=== PATIENT | male | born 1960 | race African-American/Black ===

== ENCOUNTER 2020-05-06 13:11 | Emergency (ER) | payer MEDICARE ==
[2020-05-06 13:20] VITALS: BP 173/102; PULSE 89; RESP 18; TEMP 99.1
--- NOTE | 2020-05-06 13:46 | ED ---
General Adult HPI - General Chief complaint: Altered Mental Status Stated complaint: confusion/depressed Time Seen by Provider: 05/06/20 13:23 Source: patient, RN notes reviewed, old records reviewed Mode of arrival: wheelchair Limitations: altered mental status - History of Present Illness Initial comments: 60-year-old male presenting for evaluation of anxiety, panic attacks over the past one week. He reports that he's been confused for what he means by this is that he's had a difficult time making decisions. He states he has been watching the news and given the pandemic and riding he has had severe anxiety. He has no previous history of anxiety or depression. He denies suicidal ideation. He states he's having racing thoughts. Currently on gabapentin, Vicodin, and Motrin for chronic pain. No previous psychiatric issues. Patient denying focal numbness or weakness. Denies headache. Denies change in appetite. Denied vomiting or diarrhea. No fever. - Related Data Previous Rx's Medication Instructions Recorded ALPRAZolam [Xanax] 0.5 mg PO HS PRN #3 tab 05/06/20 Allergies Allergy/AdvReac Type Severity Reaction Status Date / Time No Known Allergies Allergy Verified 05/06/20 13:20 Review of Systems ROS Statement: Those systems with pertinent positive or pertinent negative responses have been documented in the HPI. ROS Other: All systems not noted in ROS Statement are negative. Past Medical History Past Medical History: Hyperlipidemia, Hypertension History of Any Multi-Drug Resistant Organisms: None Reported Past Surgical History: Orthopedic Surgery Past Psychological History: No Psychological Hx Reported Smoking Status: Never smoker Past Alcohol Use History: None Reported Past Drug Use History: None Reported General Exam Limitations: altered mental status General appearance: alert, in no apparent distress, anxious Head exam: Present: atraumatic, normocephalic Eye exam: Present: normal appearance, PERRL ENT exam: Present: normal exam, mucous membranes moist Neck exam: Present: normal inspection. Absent: tenderness, meningismus Respiratory exam: Present: normal lung sounds bilaterally. Absent: respiratory distress, wheezes, rales Cardiovascular Exam: Present: regular rate, normal rhythm GI/Abdominal exam: Present: soft. Absent: distended, tenderness, guarding Extremities exam: Present: normal inspection, normal capillary refill. Absent: pedal edema, calf tenderness Neurological exam: Present: alert, oriented X3, CN II-XII intact. Absent: motor sensory deficit Psychiatric exam: Present: anxious. Absent: suicidal ideation Skin exam: Present: warm, dry, intact. Absent: cyanosis, diaphoretic Course Vital Signs 05/06/20 13:16 Temperature 99.1 F Pulse Rate 89 Respiratory 18 Rate Blood Pressure 173/102 O2 Sat by Pulse 97 Oximetry - Reevaluation(s) Reevaluation #1: 05/06/20 15:00 Patient medically cleared, awaiting EPS evaluation Medical Decision Making - Medical Decision Making Patient with anxiety, panic attacks. Patient medically cleared and evaluated by EPS, given referrals, felt not to require inpatient psychiatric evaluation treatment. I agree with this. Patient is able to sign a safety plan, he has a brother who he can rely on. He will attempt to control his anxiety at home. He is given a three-day supply of Xanax and will follow-up with both [facility] and with his primary care physician. - Lab Data Result diagrams: 05/06/20 13:58 05/06/20 13:58 Lab Results 05/06/20 05/06/20 05/06/20 Range/Units 13:58 13:58 14:00 WBC 7.4 (3.8-10.6) k/uL RBC 4.89 (4.30-5.90) m/uL Hgb 15.1 (13.0-17.5) gm/dL Hct 43.2 (39.0-53.0) % MCV 88.4 (80.0-100.0) fL MCH 30.9 (25.0-35.0) pg MCHC 35.0 (31.0-37.0) g/dL RDW 12.5 (11.5-15.5) % Plt Count 189 (150-450) k/uL Neutrophils % 62 % Lymphocytes % 24 % Monocytes % 10 % Eosinophils % 1 % Basophils % 1 % Neutrophils # 4.6 (1.3-7.7) k/uL Lymphocytes # 1.7 (1.0-4.8) k/uL Monocytes # 0.7 (0-1.0) k/uL Eosinophils # 0.1 (0-0.7) k/uL Basophils # 0.0 (0-0.2) k/uL Sodium 135 L (137-145) mmol/L Potassium 3.4 L (3.5-5.1) mmol/L Chloride 96 L (98-107) mmol/L Carbon Dioxide 27 (22-30) mmol/L Anion Gap 12 mmol/L BUN 8 L (9-20) mg/dL Creatinine 0.71 (0.66-1.25) mg/dL Est GFR (CKD-EPI)AfAm >90 (>60 ml/min/1.73 sqM) Est GFR (CKD-EPI)NonAf >90 (>60 ml/min/1.73 sqM) Glucose 126 H (74-99) mg/dL Calcium 9.2 (8.4-10.2) mg/dL Total Bilirubin 1.0 (0.2-1.3) mg/dL AST 162 H (17-59) U/L ALT 54 H (4-49) U/L Alkaline Phosphatase 85 (38-126) U/L Total Protein 7.6 (6.3-8.2) g/dL Albumin 4.1 (3.5-5.0) g/dL Urine Color Yellow Urine Appearance Clear (Clear) Urine pH 7.0 (5.0-8.0) Ur Specific [place] 1.007 (1.001-1.035) Urine Protein Negative (Negative) Urine Glucose (UA) Negative (Negative) Urine Ketones Negative (Negative) Urine Blood Small H (Negative) Urine Nitrite Negative (Negative) Urine Bilirubin Negative (Negative) Urine Urobilinogen <2.0 (<2.0) mg/dL Ur Leukocyte Esterase Negative (Negative) Urine RBC 4 (0-5) /hpf Urine WBC 1 (0-5) /hpf Urine Opiates Screen Detected H (NotDetected) Ur Oxycodone Screen Not Detected (NotDetected) Urine Methadone Screen Not Detected (NotDetected) Ur Propoxyphene Screen Not Detected (NotDetected) Ur Barbiturates Screen Not Detected (NotDetected) U Tricyclic Antidepress Not Detected (NotDetected) Ur Phencyclidine Scrn Not Detected (NotDetected) Ur Amphetamines Screen Not Detected (NotDetected) U Methamphetamines Scrn Not Detected (NotDetected) U Benzodiazepines Scrn Not Detected (NotDetected) Urine Cocaine Screen Not Detected (NotDetected) U Marijuana (THC) Screen Not Detected (NotDetected) Disposition Clinical Impression: Anxiety Disposition: HOME SELF-CARE Condition: Fair Instructions (If sedation given, give patient instructions): Anxiety (ED) Prescriptions: ALPRAZolam [Xanax] 0.5 mg PO HS PRN #3 tab PRN Reason: Anxiety Is patient prescribed a controlled substance at d/c from ED?: No Referrals: Eladio Paula MD [Primary Care Provider] - 1-2 days Time of Disposition: 15:58
[2020-05-06 14:33] LABS: Basophils % (A) 1 %; Eosinophils # (A) 0.1 k/uL (0-0.7); Eosinophils % (A) 1 %; HCT 43.2 % (39.0-53.0); HGB 15.1 gm/dL (13.0-17.5); Lymphocytes # (A) 1.7 k/uL (1.0-4.8); Lymphocytes % (A) 24 %; MCH 30.9 pg (25.0-35.0); MCV 88.4 fL (80.0-100.0); Mean Platelet Volume 6.6; Monocytes # (A) 0.7 k/uL (0-1.0); Monocytes % (A) 10 %; Neutrophils # (A) 4.6 k/uL (1.3-7.7); Neutrophils % (A) 62 %; Platelet Count 189 k/uL (150-450); RBC 4.89 m/uL (4.30-5.90); RDW 12.5 % (11.5-15.5); WBC 7.4 k/uL (3.8-10.6)
[2020-05-06 14:35] LABS: Appearance,Urine Clear (Clear); Bilirubin,Urine Negative (Negative); Blood,Urine Small (Negative); Color,Urine Yellow; Glucose,Urine (UA) Negative (Negative); Ketones,Urine Negative (Negative); Leukocyte Esterase,Urine Negative (Negative); Nitrite,Urine Negative (Negative); Protein,Urine Negative (Negative); RBC,Urine 4 /hpf (0-5); Specific Gravity,Urine 1.007 (1.001-1.035); Urobilinogen,Urine <2.0 mg/dL (<2.0); WBC,Urine 1 /hpf (0-5)
[2020-05-06 14:38] LABS: ALT 54 U/L (4-49); AST 162 U/L (17-59); African American GFR (CKD) >90 (>60 ml/min/1.73 sqM); Albumin 4.1 g/dL (3.5-5.0); Alkaline Phosphatase 85 U/L (38-126); Anion Gap 12 mmol/L; Blood Urea Nitrogen 8 mg/dL (9-20); Calcium 9.2 mg/dL (8.4-10.2); Carbon Dioxide 27 mmol/L (22-30); Chloride 96 mmol/L (98-107); Glucose 126 mg/dL (74-99); Non-African American GFR(CKD) >90 (>60 ml/min/1.73 sqM); Potassium 3.4 mmol/L (3.5-5.1); Sodium 135 mmol/L (137-145); Total Protein 7.6 g/dL (6.3-8.2)
[2020-05-06 14:50] LABS: Amphetamine Screen,Urine Not Detected (NotDetected); Barbiturate Screen,Urine Not Detected (NotDetected); Benzodiazepines Screen,Urine Not Detected (NotDetected); Cocaine Screen,Urine Not Detected (NotDetected); Methadone Screen, Urine Not Detected (NotDetected); Opiate Screen,Urine Detected (NotDetected); Oxycodone Screen, Urine Not Detected (NotDetected); Phencyclidine Screen,Urine Not Detected (NotDetected); Tricyclic Antidepressant,Urine Not Detected (NotDetected); Urn Cannabinoid Scrn Not Detected (NotDetected)
== END 2020-05-06 16:27 | disposition home or self-care (01) ==
LOC: EC 13:11
DX: F41.0 Panic disorder [episodic paroxysmal anxiety] (principal); R41.82 Altered mental status, unspecified
CPT/HCPCS: 36415; 80053; 80306; 81001; 82075; 85025; 99285

== ENCOUNTER 2020-05-07 06:38 | Emergency (ER) | payer MEDICARE ==
--- NOTE | 2020-05-07 07:10 | ED ---
General Adult HPI <Roger Yu - Last Filed: 05/07/20 11:54> - General Source: patient, family, RN notes reviewed Mode of arrival: ambulatory Limitations: no limitations <Chaim Perry - Last Filed: 05/07/20 15:31> <Dorian Juares - Last Filed: 05/09/20 01:37> <Jessi Olivo - Last Filed: 05/10/20 00:11> <Nolan Schumacher - Last Filed: 05/10/20 14:17> - General Chief complaint: Neuro Symptoms/Deficit Stated complaint: altered mental status Time Seen by Provider: 05/07/20 06:54 - History of Present Illness Initial comments: 60-year-old male presents emergency department for confusion. Patient's had confusion, altered mental status and bizarre behavior for last few days. Patient is here with brother who states it seems to worsening. Patient was evaluated by psychiatric service yesterday and discharged with anxiety. Patient denies being suicidal. He states he never harm anybody. Patient states though he is going to and he states that he needs to via suit because he will be dy ing soon. He states are demons everywhere and that he needs to get rid of the demons. Patient's was found outside naked, does have an abrasion on his forehead. Patient denies any drug use he does take gabapentin, ibuprofen, [place]. Patient was given Xanax yesterday for his anxiety. Patient has no complaints of abdominal pain, headache or neck pain he has chronic low back pain. (Chaim Perry) - Related Data Home Medications Medication Instructions Recorded Confirmed Gabapentin 800 mg PO TID 05/07/20 05/07/20 HYDROcodone/APAP 10-325MG [[place] 1 tab PO Q6H 05/07/20 05/07/20 10-325] Ibuprofen [Motrin] 800 mg PO Q8H 05/07/20 05/07/20 Losartan/Hydrochlorothiazide 1 tab PO DAILY 05/07/20 05/07/20 [Losartan-Hctz 100-25 mg Tab] Mupirocin 2% Oint [Bactroban 2% 1 applic TOPICAL TID 05/07/20 05/07/20 Oint] Previous Rx's Medication Instructions Recorded ALPRAZolam [Xanax] 0.5 mg PO HS PRN #3 tab 05/06/20 Allergies Allergy/AdvReac Type Severity Reaction Status Date / Time No Known Allergies Allergy Verified 05/07/20 07:32 Review of Systems ROS Other: All systems not noted in ROS Statement are negative. <Roger Yu Abena - Last Filed: 05/07/20 11:54> ROS Other: All systems not noted in ROS Statement are negative. <Chaim Perry - Last Filed: 05/07/20 15:31> ROS Other: All systems not noted in ROS Statement are negative. <Dorian Juares - Last Filed: 05/09/20 01:37> ROS Other: All systems not noted in ROS Statement are negative. <Jessi Olivo - Last Filed: 05/10/20 00:11> ROS Other: All systems not noted in ROS Statement are negative. <Nolan Schumacher - Last Filed: 05/10/20 14:17> ROS Statement: Those systems with pertinent positive or pertinent negative responses have been documented in the HPI. Past Medical History Past Medical History: Hyperlipidemia, Hypertension History of Any Multi-Drug Resistant Organisms: None Reported Past Surgical History: Orthopedic Surgery Past Psychological History: No Psychological Hx Reported Smoking Status: Never smoker Past Alcohol Use History: None Reported Past Drug Use History: None Reported <Chaim Perry - Last Filed: 05/07/20 15:31> General Exam Limitations: no limitations General appearance: alert, in no apparent distress Head exam: Present: atraumatic, normocephalic, normal inspection Eye exam: Present: normal appearance, PERRL, EOMI. Absent: scleral icterus, conjunctival injection, periorbital swelling ENT exam: Present: normal exam, normal oropharynx, mucous membranes moist Neck exam: Present: normal inspection, full ROM. Absent: tenderness, meningism us, lymphadenopathy Respiratory exam: Present: normal lung sounds bilaterally. Absent: respiratory distress, wheezes, rales, rhonchi, stridor Cardiovascular Exam: Present: regular rate, normal rhythm, normal heart sounds. Absent: systolic murmur, diastolic murmur, rubs, gallop, clicks GI/Abdominal exam: Present: soft, normal bowel sounds. Absent: distended, tenderness, guarding, rebound, rigid Neurological exam: Present: alert, oriented X3, CN II-XII intact, reflexes normal. Absent: motor sensory deficit Psychiatric exam: Present: anxious Skin exam: Present: warm, dry, intact, normal color. Absent: rash <Chaim Perry - Last Filed: 05/07/20 15:31> Course <Jessi Olivo - Last Filed: 05/10/20 00:11> <Nolan Schumacher - Last Filed: 05/10/20 14:17> Vital Signs 05/07/20 05/07/20 05/07/20 06:41 10:52 13:43 Temperature 99 F 97.9 F Pulse Rate 100 89 81 Respiratory 18 16 16 Rate Blood Pressure 132/82 141/84 145/85 O2 Sat by Pulse 96 96 96 Oximetry 05/07/20 05/07/20 05/08/20 17:16 22:13 03:30 Temperature Pulse Rate 104 H 98 78 Respiratory 18 18 18 Rate Blood Pressure 174/98 160/89 176/80 O2 Sat by Pulse 98 99 98 Oximetry 05/08/20 05/09/20 05/09/20 15:00 05:56 09:27 Temperature 98.0 F Pulse Rate 80 100 88 Respiratory 18 16 18 Rate Blood Pressure 156/87 160/80 185/95 O2 Sat by Pulse 99 98 98 Oximetry 05/09/20 05/09/20 05/09/20 16:44 19:40 22:59 Temperature 98.8 F 98.9 F Pulse Rate 103 H 97 85 Respiratory 18 16 16 Rate Blood Pressure 146/81 191/87 164/77 O2 Sat by Pulse 98 100 97 Oximetry 05/10/20 05/10/20 05/10/20 06:37 07:44 08:34 Temperature 97.8 F Pulse Rate 98 96 Respiratory 16 20 18 Rate Blood Pressure 143/77 143/75 O2 Sat by Pulse 98 96 Oximetry 05/10/20 05/10/20 05/10/20 09:00 10:00 11:00 Temperature Pulse Rate Respiratory 18 18 18 Rate Blood Pressure O2 Sat by Pulse Oximetry - Reevaluation(s) Reevaluation #1: 05/10/20 00:11 The patient is reevaluated upon multiple occasions. He has been denied by several facilities. He remained in stable condition. EPS will attempt again in the morning for placement (Jessi Olivo) 05/10/20 12:02 Patient also evaluated by myself, Dr. Schumacher. Patient resting comfortably in bed. Patient admits to feeling paranoid and being chased by demons. Patient reportedly was running around naked. Positive clinical certificate completed again (Nolan Schumacher) EKG Findings - EKG Comments: EKG Findings:: EKG performed at 6:59 normal sinus rhythm rate of 96 KS 150 QRS 124 QT/QTC 378/477 left axis deviation <Chaim Perry - Last Filed: 05/07/20 15:31> Procedures - Restraint - Face to Face Restraint Occurrence 1 Patient's Immediate Situation: Endangers others' safety, Endangers staff safety, Violent behavior Patient's Reaction to the Intervention: Uncooperative, Combative Patient's Medical & Behavioral Condition: Awake, Alert, Agitated Need to Continue or Terminate Restraint or Seclusion: Continue Face to Face Eval of Restraint Date: 05/07/20 Face to Face Eval of Restraint Time: 08:25 <Chaim Perry - Last Filed: 05/07/20 15:31> - Restraint - Face to Face Restraint Occurrence 2 Patient's Immediate Situation: Endangers others' safety, Endangers staff safety, Violent behavior Patient's Reaction to the Intervention: Uncooperative, Angry, Aggressive, Combative Patient's Medical & Behavioral Condition: Alert, Agitated, Paranoid Need to Continue or Terminate Restraint or Seclusion: Continue Face to Face Eval of Restraint Date: 05/09/20 Face to Face Eval of Restraint Time: 01:39 <Dorian Juares - Last Filed: 05/09/20 01:37> Medical Decision Making - Lab Data Result diagrams: 05/07/20 07:15 05/07/20 07:15 <Roger Yu - Last Filed: 05/07/20 11:54> - Lab Data Result diagrams: 05/07/20 07:15 05/07/20 07:15 <Chaim Perry - Last Filed: 05/07/20 15:31> - Lab Data Result diagrams: 05/07/20 07:15 05/07/20 07:15 <Dorian Juares - Last Filed: 05/09/20 01:37> - Lab Data Result diagrams: 05/07/20 07:15 05/07/20 07:15 <Jessi Olivo - Last Filed: 05/10/20 00:11> - Lab Data Result diagrams: 05/07/20 07:15 05/07/20 07:15 <Nolan Schumacher - Last Filed: 05/10/20 14:17> - Medical Decision Making Patient is evaluated by EPS, felt to require inpatient psychiatric evaluation treatment. Patient is acutely psychotic with auditory hallucination, agitation and aggression. He will be transferred for further psychiatric care. I did complete a clinical certification on this patient. (Roger Yu) Patient was medically cleared, evaluated labs, CT which did not reveal any significant abnormality other than mild hypokalemia this was replaced. Patient evaluated by EPS and will be transferred to psychiatric facility for psychosis. (Chaim Perry) - Lab Data Lab Results 05/07/20 05/07/20 05/07/20 Range/Units 07:15 07:15 10:45 WBC 8.3 (3.8-10.6) k/uL RBC 5.04 (4.30-5.90) m/uL Hgb 15.4 (13.0-17.5) gm/dL Hct 45.0 (39.0-53.0) % MCV 89.4 (80.0-100.0) fL MCH 30.6 (25.0-35.0) pg MCHC 34.2 (31.0-37.0) g/dL RDW 12.6 (11.5-15.5) % Plt Count 207 (150-450) k/uL Neutrophils % 68 % Lymphocytes % 19 % Monocytes % 7 % Eosinophils % 2 % Basophils % 0 % Neutrophils # 5.6 (1.3-7.7) k/uL Lymphocytes # 1.6 (1.0-4.8) k/uL Monocytes # 0.6 (0-1.0) k/uL Eosinophils # 0.2 (0-0.7) k/uL Basophils # 0.0 (0-0.2) k/uL Sodium 137 (137-145) mmol/L Potassium 3.0 L (3.5-5.1) mmol/L Chloride 99 (98-107) mmol/L Carbon Dioxide 24 (22-30) mmol/L Anion Gap 14 mmol/L BUN 10 (9-20) mg/dL Creatinine 0.86 (0.66-1.25) mg/dL Est GFR (CKD-EPI)AfAm >90 (>60 ml/min/1.73 sqM) Est GFR (CKD-EPI)NonAf >90 (>60 ml/min/1.73 sqM) Glucose 151 H (74-99) mg/dL POC Glucose (mg/dL) (75-99) mg/dL POC Glu [employer] Valuer ID Calcium 9.1 (8.4-10.2) mg/dL Total Bilirubin 0.9 (0.2-1.3) mg/dL AST 155 H (17-59) U/L ALT 57 H (4-49) U/L Alkaline Phosphatase 76 (38-126) U/L Ammonia 18 (<30) umol/L Total Protein 7.9 (6.3-8.2) g/dL Albumin 4.1 (3.5-5.0) g/dL Urine Color Urine Appearance (Clear) Urine pH (5.0-8.0) Ur Specific [place] (1.001-1.035) Urine Protein (Negative) Urine Glucose (UA) (Negative) Urine Ketones (Negative) Urine Blood (Negative) Urine Nitrite (Negative) Urine Bilirubin (Negative) Urine Urobilinogen (<2.0) mg/dL Ur Leukocyte Esterase (Negative) Urine RBC (0-5) /hpf Urine WBC (0-5) /hpf Hyaline Casts (0-2) /lpf Urine Mucus (None) /hpf Urine Opiates Screen (NotDetected) Ur Oxycodone Screen (NotDetected) Urine Methadone Screen (NotDetected) Ur Propoxyphene Screen (NotDetected) Ur Barbiturates Screen (NotDetected) U Tricyclic Antidepress (NotDetected) Ur Phencyclidine Scrn (NotDetected) Ur Amphetamines Screen (NotDetected) U Methamphetamines Scrn (NotDetected) U Benzodiazepines Scrn (NotDetected) Urine Cocaine Screen (NotDetected) U Marijuana (THC) Screen (NotDetected) Serum Alcohol 16 mg/dL 05/07/20 05/08/20 Range/Units 14:12 03:25 WBC (3.8-10.6) k/uL RBC (4.30-5.90) m/uL Hgb (13.0-17.5) gm/dL Hct (39.0-53.0) % MCV (80.0-100.0) fL MCH (25.0-35.0) pg MCHC (31.0-37.0) g/dL RDW (11.5-15.5) % Plt Count (150-450) k/uL Neutrophils % % Lymphocytes % % Monocytes % % Eosinophils % % Basophils % % Neutrophils # (1.3-7.7) k/uL Lymphocytes # (1.0-4.8) k/uL Monocytes # (0-1.0) k/uL Eosinophils # (0-0.7) k/uL Basophils # (0-0.2) k/uL Sodium (137-145) mmol/L Potassium (3.5-5.1) mmol/L Chloride (98-107) mmol/L Carbon Dioxide (22-30) mmol/L Anion Gap mmol/L BUN (9-20) mg/dL Creatinine (0.66-1.25) mg/dL Est GFR (CKD-EPI)AfAm (>60 ml/min/1.73 sqM) Est GFR (CKD-EPI)NonAf (>60 ml/min/1.73 sqM) Glucose (74-99) mg/dL POC Glucose (mg/dL) 133 H (75-99) mg/dL POC Glu [employer] Valuer ID Aleida [place] Calcium (8.4-10.2) mg/dL Total Bilirubin (0.2-1.3) mg/dL AST (17-59) U/L ALT (4-49) U/L Alkaline Phosphatase (38-126) U/L Ammonia (<30) umol/L Total Protein (6.3-8.2) g/dL Albumin (3.5-5.0) g/dL Urine Color Yellow Urine Appearance Clear (Clear) Urine pH 6.0 (5.0-8.0) Ur Specific [place] 1.014 (1.001-1.035) Urine Protein Trace H (Negative) Urine Glucose (UA) Negative (Negative) Urine Ketones 1+ H (Negative) Urine Blood Small H (Negative) Urine Nitrite Negative (Negative) Urine Bilirubin Negative (Negative) Urine Urobilinogen <2.0 (<2.0) mg/dL Ur Leukocyte Esterase Negative (Negative) Urine RBC 4 (0-5) /hpf Urine WBC 2 (0-5) /hpf Hyaline Casts 1 (0-2) /lpf Urine Mucus Occasional H (None) /hpf Urine Opiates Screen Detected H (NotDetected) Ur Oxycodone Screen Not Detected (NotDetected) Urine Methadone Screen Not Detected (NotDetected) Ur Propoxyphene Screen Not Detected (NotDetected) Ur Barbiturates Screen Not Detected (NotDetected) U Tricyclic Antidepress Not Detected (NotDetected) Ur Phencyclidine Scrn Not Detected (NotDetected) Ur Amphetamines Screen Not Detected (NotDetected) U Methamphetamines Scrn Not Detected (NotDetected) U Benzodiazepines Scrn Detected H (NotDetected) Urine Cocaine Screen Not Detected (NotDetected) U Marijuana (THC) Screen Not Detected (NotDetected) Serum Alcohol mg/dL Disposition Is patient prescribed a controlled substance at d/c from ED?: No <Roger Yu - Last Filed: 05/07/20 11:54> Is patient prescribed a controlled substance at d/c from ED?: No <Chaim Perry - Last Filed: 05/07/20 15:31> <Dorian Juares - Last Filed: 05/09/20 01:37> <Jessi Olivo - Last Filed: 05/10/20 00:11> <Nolan Schumacher - Last Filed: 05/10/20 14:17> Clinical Impression: Acute psychosis Disposition: TRANSFER TO PSYCH HOSP/UNIT Condition: Stable Referrals: Eladio Paula MD [Primary Care Provider] - 1-2 days
[2020-05-07 07:35] LABS: Basophils % (A) 0 %; Eosinophils # (A) 0.2 k/uL (0-0.7); Eosinophils % (A) 2 %; HGB 15.4 gm/dL (13.0-17.5); Lymphocytes # (A) 1.6 k/uL (1.0-4.8); Lymphocytes % (A) 19 %; MCH 30.6 pg (25.0-35.0); MCHC 34.2 g/dL (31.0-37.0); MCV 89.4 fL (80.0-100.0); Mean Platelet Volume 7.5; Monocytes # (A) 0.6 k/uL (0-1.0); Monocytes % (A) 7 %; Neutrophils # (A) 5.6 k/uL (1.3-7.7); Neutrophils % (A) 68 %; Platelet Count 207 k/uL (150-450); RBC 5.04 m/uL (4.30-5.90); RDW 12.6 % (11.5-15.5); WBC 8.3 k/uL (3.8-10.6)
--- NOTE | 2020-05-07 07:52 | CT ---
EXAMINATION TYPE: CT brain wo con DATE OF EXAM: 05/07/2020 COMPARISON: None HISTORY: 60-year-old male with confusion, altered mental status TECHNIQUE: Examination was done in axial plane without intravenous contrast. Coronal and sagittal r econstructions performed. CT DLP: 1143.4 mGycm Automated exposure control for dose reduction was used. FINDINGS: There is no evidence of acute intracranial hemorrhage, acute ischemic changes, mass, mass-effect, or extra-axial fluid collection. There is no effacement of cerebral sulci or basal subarachnoid cister ns. There is no hydrocephalus. There is no midline shift. [place]-white matter distinction is preserv ed. A couple polyps or mucosal retention cyst measuring up to 1.2 cm in the right maxillary sinus. Scatte red mild mucosal thickening ethmoid air cells. Small air-fluid level left frontal sinus. Mastoid air cells are well pneumatized. Orbits and globes appear intact. Generalized hyperostosis of the inner table of the calvarium likely normal variation IMPRESSION: No acute intracranial abnormality seen. Mild paranasal sinus disease. Small air-fluid level left frontal sinus; correlate to exclude acute si nusitis.
[2020-05-07 07:57] LABS: ALT 57 U/L (4-49); AST 155 U/L (17-59); African American GFR (CKD) >90 (>60 ml/min/1.73 sqM); Albumin 4.1 g/dL (3.5-5.0); Alcohol 16 mg/dL; Alkaline Phosphatase 76 U/L (38-126); Anion Gap 14 mmol/L; Blood Urea Nitrogen 10 mg/dL (9-20); Calcium 9.1 mg/dL (8.4-10.2); Carbon Dioxide 24 mmol/L (22-30); Chloride 99 mmol/L (98-107); Glucose 151 mg/dL (74-99); Non-African American GFR(CKD) >90 (>60 ml/min/1.73 sqM); Sodium 137 mmol/L (137-145); Total Bilirubin 0.9 mg/dL (0.2-1.3); Total Protein 7.9 g/dL (6.3-8.2)
[2020-05-07] MEDS ORDERED: LORazepam 2 MG/ML INJ IV STA (08:15)
[2020-05-07] MEDS ORDERED: ZIPRASIDONE 20 MG VIAL IM STA (08:19)
[2020-05-07] MEDS ORDERED: POTASSIUM CHLORIDE ER 20 MEQ TAB.ER PO STA (13:31)
[2020-05-07 14:40] LABS: Amphetamine Screen,Urine Not Detected (NotDetected); Barbiturate Screen,Urine Not Detected (NotDetected); Benzodiazepines Screen,Urine Detected (NotDetected); Cocaine Screen,Urine Not Detected (NotDetected); Methadone Screen, Urine Not Detected (NotDetected); Opiate Screen,Urine Detected (NotDetected); Oxycodone Screen, Urine Not Detected (NotDetected); Phencyclidine Screen,Urine Not Detected (NotDetected); Tricyclic Antidepressant,Urine Not Detected (NotDetected); Urn Cannabinoid Scrn Not Detected (NotDetected)
[2020-05-07 14:42] LABS: Appearance,Urine Clear (Clear); Bilirubin,Urine Negative (Negative); Blood,Urine Small (Negative); Color,Urine Yellow; Glucose,Urine (UA) Negative (Negative); Hyaline Casts,Urine 1 /lpf (0-2); Ketones,Urine 1+ (Negative); Leukocyte Esterase,Urine Negative (Negative); Mucus,Urine Occasional /hpf; Nitrite,Urine Negative (Negative); Protein,Urine Trace (Negative); RBC,Urine 4 /hpf (0-5); Specific Gravity,Urine 1.014 (1.001-1.035); Urobilinogen,Urine <2.0 mg/dL (<2.0); WBC,Urine 2 /hpf (0-5)
[2020-05-08 03:27] LABS: Glucose,Whole Blood 133 mg/dL (75-99)
[2020-05-08] MEDS: LOSARTAN-HCTZ 50-12.5 MG 1 EACH TAB PO SCH (12:16)
[2020-05-09] MEDS ORDERED: diphenhydrAMINE 50 MG/ML 1 ML VIAL IM STA (01:30)
[2020-05-09] MEDS ORDERED: HALOPERIDOL LACTATE 5 MG/ML 1 ML VIAL IM PRN (01:30)
[2020-05-09] MEDS ORDERED: LORazepam 2 MG/ML INJ IM STA (01:30)
[2020-05-09] MEDS: LOSARTAN-HCTZ 50-12.5 MG 1 EACH TAB PO SCH (09:29)
[2020-05-09] MEDS: HALOPERIDOL 5 MG TAB PO SCH ×2 (09:32→22:54)
[2020-05-09] MEDS: LORazepam 1 MG TAB PO PRN (22:55)
[2020-05-10] MEDS: LORazepam 1 MG TAB PO PRN (08:47)
[2020-05-10] MEDS: HALOPERIDOL 5 MG TAB PO SCH ×2 (08:47→22:28)
[2020-05-10] MEDS: LOSARTAN-HCTZ 50-12.5 MG 1 EACH TAB PO SCH (08:52)
[2020-05-10] MEDS ORDERED: POTASSIUM CHLORIDE ER 20 MEQ TAB.ER PO STA (12:03)
[2020-05-11] MEDS: LOSARTAN-HCTZ 50-12.5 MG 1 EACH TAB PO SCH (09:49)
[2020-05-11] MEDS: HALOPERIDOL 5 MG TAB PO SCH ×2 (09:49→20:34)
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
[2020-05-13 06:04] VITALS: TEMP 98.4
[2020-05-13] MEDS: HALOPERIDOL 5 MG TAB PO SCH ×2 (08:07→12:11)
[2020-05-13] MEDS: LOSARTAN-HCTZ 50-12.5 MG 1 EACH TAB PO SCH ×2 (08:07→12:11)
--- NOTE | 2020-05-13 11:58 | P.CON ---
Consult Note - . Consult date: 05/13/20 Assessment/Plan:: Clinical Problems: Brief psychotic disorder, unspecified depressive disorder, rule out major depressive disorder with psychotic features Interim history: I reviewed the medical record, interviewed the patient, and discussed the history with the EPS nurse. He remains in the because we have been unable to find a community hospital that can accommodate his needs. He has had no episodes of agitation or behavioral dyscontrol since yesterday morning received a 5 mg dose of Haldol. He was able to talk about the circumstances that led to this hospitalization. He remains unable to explain the reason for the abrupt a marked change in his behavior. He denies that he feels as though he is possessed by demons or his thoughts or actions are influenced by demons. He denied that he is experiencing auditory, visual or olfactory hallucinations. He denies having thoughts of or suicide. We discussed discharge and aftercare. He is interested in outpatient mental health services and agreed to a trial of the recommended psychotropic medications, Zoloft and Abilify. The EPS nurse confirmed that his primary care provider will continue this prescription until he meets with a psychiatrist. DPS nurses also an apartment with a community mental health program. Mental status exam: He presented as a morbidly obese 60-year-old - [place] male who was pleasant on approach. He was laying comfortably in the gurney. He made eye contact and attended to the interview. He had no distinguishing features. He had a distressed and depressed facial expression. He had psychomotor retardation but no abnormal involuntary movements. Speech was spontaneous with decreased rate and rhythm. His affect was depressed and only minimally reactive. He denied suicidal ideation or wishes. He denied homicidal ideation. He denied feeling hopeless, helpless or worthless. He did not express ideas reference, paranoid ideation, magical ideation or delusions. His thinking was abstract and associations were coherent, logical and goal directed. He did not express clang associations, perseveration, neologisms or blocking. He denied hallucinations and did not appear to be responding to internal stimuli. We again completed the [facility] Orientation Memory and Concentration test. His total weighted error score was 2; a total weighted error score greater than 10 is consistent with a dementia. He knew the month and year. He is able to register memory phrase "Manjit Ta, [address] [place] [address]". He estimated that time correctly within 1 hour actual time. He is able to count backwards from 20-1 and name the months of the year in reverse order. He missed one element of memory phrase after distraction exercise. Assessment: The acute psychotic episode has fully resolved but he has continued symptoms of depression and would benefit from outpatient treatment of his depression. He no longer requires inpatient psychiatric treatment. Plan: Refer for outpatient mental health services. Begin Zoloft 50 mg daily and Abilify 10 mg at bedtime. Follow-up with primary care provider until he meets with outpatient mental health provider and/or psychiatrist. I completed a negative clinical certificate.
[2020-05-13] MEDS ORDERED: SERTRALINE 50 MG TAB PO STA (12:04)
[2020-05-13] MEDS ORDERED: ARIPiprazole 10 MG TAB PO SCH (12:15)
[2020-05-13 14:47] VITALS: BP 141/72; PULSE 80; RESP 18
== END 2020-05-13 14:43 ==
LOC: EC 06:38
DX: F23 Brief psychotic disorder (principal); E87.6 Hypokalemia; I10 Essential (primary) hypertension; Z79.899 Other long term (current) drug therapy
CPT/HCPCS: 99285 ×2; 96374 ×2; 96372 ×2; 36415 ×2; 93005; 80053; 82140; 85025; 81001; 80306; 70450; G0480; J2060; J3486; 80320

== ENCOUNTER 2024-04-07 11:26 | Emergency (ER) | payer MEDICARE ==
[2024-04-07 13:05] LABS: HCT 44.6 % (39.0-53.0); HGB 14.9 gm/dL (13.0-17.5); MCH 29.5 pg (25.0-35.0); MCHC 33.4 g/dL (31.0-37.0); MCV 88.4 fL (80.0-100.0); Mean Platelet Volume 6.8; Platelet Count 219 k/uL (150-450); RBC 5.05 m/uL (4.30-5.90); RDW 12.7 % (11.5-15.5); WBC 4.5 k/uL (3.8-10.6)
[2024-04-07 13:13] LABS: Partial Thromboplastin Time 29.3 sec (22.0-30.0); Prothrombin Time 10.9 sec (10.0-12.5)
[2024-04-07 13:14] LABS: ALT 46 U/L (4-49); AST 65 U/L (17-59); African American GFR (CKD) >90 (>60 ml/min/1.73 sqM); Albumin 3.9 g/dL (3.5-5.0); Alkaline Phosphatase 52 U/L (38-126); Anion Gap 7 mmol/L; Blood Urea Nitrogen 12 mg/dL (9-20); Calcium 9.2 mg/dL (8.4-10.2); Carbon Dioxide 31 mmol/L (22-30); Chloride 96 mmol/L (98-107); Glucose 120 mg/dL (74-99); Lipase 66 U/L (23-300); Magnesium 1.9 mg/dL (1.6-2.3); Non-African American GFR(CKD) >90 (>60 ml/min/1.73 sqM); Sodium 134 mmol/L (137-145); Total Protein 7.5 g/dL (6.3-8.2)
[2024-04-07 13:21] LABS: NT-Pro-B-Type Natriuretic Pept 42 pg/mL
[2024-04-07 13:23] LABS: Eosinophils # (M) 0.23 k/uL (0-0.7); Lymphocytes # (M) 0.68 k/uL (1.0-4.8); Monocytes # (M) 0.63 k/uL (0-1.0); Neutrophils # (M) 2.97 k/uL (1.3-7.7); Neutrophils % (M) 66 %; Nucleated Red Blood Cells 0 /100 WBC (0-0); Total Cells Counted 100
[2024-04-07 13:29] VITALS: TEMP 98.1
--- NOTE | 2024-04-07 13:29 | ED ---
Chest Pain HPI - General Chief Complaint: Chest Pain Stated Complaint: SOB Time Seen by Provider: 04/07/24 12:16 Source: patient, RN notes reviewed, old records reviewed Mode of arrival: ambulatory Limitations: no limitations - History of Present Illness Initial Comments: This is a 63-year-old male to the ER for evaluation of chest pain today. Patient presents today for rest for evaluation of chest pain and shortness of breath and sent from his primary care fa doctor for further evaluation. Patient is history of high blood pressure but no prior history of hypertension related issues. No heart issues no smoking history no prior history of shortness of breath main complaint being shortness of breath today MD Complaint: chest pain, other (Shortness of breath) -: days(s) Pain Location: substernal, left chest Pain Radiation: none Severity: mild Severity scale (1-10): 2 Quality: tightness, heaviness Consistency: intermittent Improves With: nothing Worsens With: exertion Anginal Symptoms: dyspnea Other Symptoms: palpitations Treatments Prior to Arrival: none - Related Data Home Medications Medication Instructions Recorded Confirmed Gabapentin 800 mg PO TID 05/07/20 05/07/20 HYDROcodone/APAP 10-325MG [[place] 1 tab PO Q6H 05/07/20 05/07/20 10-325] Ibuprofen [Motrin] 800 mg PO Q8H 05/07/20 05/07/20 Losartan/Hydrochlorothiazide 1 tab PO DAILY 05/07/20 05/07/20 [Losartan-Hctz 100-25 mg Tab] Mupirocin 2% Oint [Bactroban 2% 1 applic TOPICAL TID 05/07/20 05/07/20 Oint] Previous Rx's Medication Instructions Recorded ALPRAZolam [Xanax] 0.5 mg PO HS PRN #3 tab 05/06/20 ARIPiprazole [Abilify] 10 mg PO HS #14 tab 05/13/20 Sertraline HCl [Zoloft] 50 mg PO DAILY #14 tablet 05/13/20 Allergies Allergy/AdvReac Type Severity Reaction Status Date / Time No Known Allergies Allergy Verified 05/07/20 07:32 Review of Systems ROS Statement: Those systems with pertinent positive or pertinent negative responses have been documented in the HPI. ROS Other: All systems not noted in ROS Statement are negative. EKG Findings - EKG Comments: EKG Findings:: EKG is sinus 84 RI 190 QRS 140 QTc 408 - EKG Results: EKG: interpreted by ERMD - Dysrhythmias: Sinus rhythms and dysrhythmias: sinus rhythm (EKG from primary care office is rate of 80 RI 174 QRS 126 QTc 465) Past Medical History Past Medical History: Hyperlipidemia, Hypertension History of Any Multi-Drug Resistant Organisms: None Reported Past Surgical History: Orthopedic Surgery Past Psychological History: No Psychological Hx Reported Past Alcohol Use History: None Reported Past Drug Use History: None Reported General Exam Limitations: no limitations General appearance: alert, in no apparent distress Head exam: Present: atraumatic, normocephalic, normal inspection Eye exam: Present: normal appearance, PERRL, EOMI. Absent: scleral icterus, conjunctival injection, periorbital swelling ENT exam: Present: normal exam, mucous membranes moist Neck exam: Present: normal inspection. Absent: tenderness, meningismus, lymphadenopathy Respiratory exam: Present: normal lung sounds bilaterally. Absent: respiratory distress, wheezes, rales, rhonchi, stridor Cardiovascular Exam: Present: regular rate, normal rhythm, normal heart sounds. Absent: systolic murmur, diastolic murmur, rubs, gallop, clicks GI/Abdominal exam: Present: soft, normal bowel sounds. Absent: distended, tenderness, guarding, rebound, rigid Extremities exam: Present: normal inspection, full ROM, normal capillary refill. Absent: tenderness, pedal edema, joint swelling, calf tenderness Back exam: Present: normal inspection Neurological exam: Present: alert, oriented X3, CN II-XII intact Psychiatric exam: Present: normal affect, normal mood Skin exam: Present: warm, dry, intact, normal color. Absent: rash Course Vital Signs 04/07/24 04/07/24 12:00 16:34 Temperature 98.1 F Pulse Rate 80 86 Respiratory 20 18 Rate Blood Pressure 162/77 126/85 O2 Sat by Pulse 99 97 Oximetry - Reevaluation(s) Reevaluation #1: 04/07/24 14:10 Medical records reviewed Reevaluation #2: Patient symptoms improved here in the ER Reevaluation #3: Patient informed of results questions answered Studies Chest x-ray CTA chest negative for acute disease Reevaluation #4: Was pt. sent in by a medical professional or institution (, PA, MANAGER ENTERPRISE, urgent care, hospital, or correction...) When possible be specific @ -no Did you speak to anyone other than the patient for history (EMS, parent, family, police, friend...)? What history was obtained from this source @ -no Did you review nursing and triage notes (agree or disagree)? Why? @ -agree Are old charts reviewed (outside hosp., previous admission, EMS record, old EKG, old radiological studies, urgent care reports/EKG's, correction records)? Report findings @ -yes Differential Diagnosis (chest pain, altered mental status, abdominal pain women, abdominal pain men, vaginal bleeding, weakness, fever, dyspnea, syncope, headache, dizziness, GI bleed, back pain, seizure, CVA, palpatations, mental health, musculoskeletal)? @ -prior EKG interpreted by me (3pts min.). @ -yes X-rays interpreted by me (1pt min.). @ -yes negative for acute disease CT interpreted by me (1pt min.). @ -Yes negative for acute disease U/S interpreted by me (1pt. min.). @ -no What testing was considered but not performed or refused? (CT, X-rays, U/S, labs)? Why? @ -none What meds were considered but not given or refused? Why? @ -none Did you discuss the management of the patient with other professionals (professionals i.e. , PA, MANAGER ENTERPRISE, lab, RT, psych nurse, social media job titles, transfer car operator, teacher, code enforcement officer, family independence case manager)? Give summary @ -no Was smoking cessation discussed for >3mins.? @ -no Was critical care preformed (if so, how long)? @ -no Were there social determinants of health that impacted care today? How? (Homelessness, low income, unemployed, alcoholism, drug addiction, transportation, low edu. Level, literacy, decrease access to med. care, group home, rehab)? @ -none Was there de-escalation of care discussed even if they declined (Discuss DNR or withdrawal of care, Hospice)? DNR status @ -no What co-morbidities impacted this encounter? (DM, HTN, Smoking, COPD, CAD, Cancer, CVA, ARF, Chemo, Hep., AIDS, mental health diagnosis, sleep apnea, morbid obesity)? @ -none Was patient admitted / discharged? Hospital course, mention meds given and route, prescriptions, significant lab abnormalities, going to OR and other pertinent info. @ - 63 male to ER for chest pain and scapular pain with no acute cause found here in the emergency department. Normal x-ray normal CT scan normal lab testing, patient can be discharged home Discharge Undiagnosed new problem with uncertain prognosis? @ -no Drug Therapy requiring intensive monitoring for toxicity (Heparin, Nitro, Insulin, Cardizem)? @ -no Were any procedures done? @ -no Diagnosis/symptom? @ - Acute, or Chronic, or Acute on Chronic? @ -Acute Uncomplicated (without systemic symptoms) or Complicated (systemic symptoms)? @ -Complicated Side effects of treatment? @ -no Exacerbation, Progression, or Severe Exacerbation? @ -exacerbation Poses a threat to life or bodily function? How? (Chest pain, [place], [place], pneumonia, PE, COPD, DKA, ARF, appy, cholecystitis, CVA, Diverticulitis, Homicidal, Suicidal, threat to staff... and all critical care pts) @ -yes with significant chest pain chest pain Reevaluation #5: Differential Dyspnea: Coronary syndrome, arrhythmia, tamponade, asthma, COPD, pulmonary embolism, pneumonia, pneumothorax, pulmonary effusion, anaphylaxis, diabetic ketoacidosis, flailed chest, pulmonary contusion, diaphragmatic rupture, anemia, neuromuscular, this is not meant to be an all-inclusive list. Chest Pain MDM - MDM 63 male to ER for chest pain and scapular pain with no acute cause found here in the emergency department. Normal x-ray normal CT scan normal lab testing, patient can be discharged home Disposition Clinical Impression: Atypical chest pain, Chest pain, Pain of left scapula Disposition: HOME SELF-CARE Condition: Good Instructions (If sedation given, give patient instructions): Chest Pain (ED) Is patient prescribed a controlled substance at d/c from ED?: No Referrals: Eladio Paula MD [Primary Care Provider] - 1-2 days Time of Disposition: 15:00
--- NOTE | 2024-04-07 13:59 | XR ---
EXAMINATION TYPE: XR chest 2V DATE OF EXAM: 04/07/2024 1:08 PM CLINICAL INDICATION:Male, 63 years old with history of Chest Pain; [facility] COMPARISON: none TECHNIQUE: XR chest 2V Frontal and lateral views of the chest. FINDINGS: Lungs/Pleura: Low lung volumes are present. There is no evidence of pleural effusion, focal consolida tion, or pneumothorax. Pulmonary vascularity: Unremarkable. Heart/mediastinum: Cardiomediastinal silhouette is unremarkable. Musculoskeletal: No acute osseous pathology. Fecal changes left shoulder. IMPRESSION: No acute cardiopulmonary disease/process.
--- NOTE | 2024-04-07 15:14 | CT ---
EXAMINATION TYPE: CT angio chest DATE OF EXAM: 04/07/2024 COMPARISON: None HISTORY: chest pain CT DLP: 1096.1 mGycm CONTRAST: CT chest with contrast and 3D reconstruction with MIP imaging is performed with IV Contrast, patient injected with 100 ml mL of Isovue 370. Contrast-enhanced CT of the chest was performed through the course of the pulmonary arteries with sherman g and mediastinal window settings submitted. 3D reconstruction with MIP imaging was also performed. PULMONARY ARTERIES: The pulmonary arteries and their major tributaries are patent. I do not see dalia dence for sizable filling defect to suggest pulmonary embolic process. LUNGS: The lungs are clear and free of infiltrate. No evidence for atelectasis. No pulmonary nodule or mass is detected. No pleural effusion. MEDIASTINUM: Ascending thoracic aortic aneurysm measuring 4.2 cm AP dimension. No complicating factor . The heart is not enlarged. No evidence for mediastinal mass. No mediastinal lymph nodes greater t winkler 1cm. HILAR STRUCTURES: No evidence for mass. No hilar lymph nodes greater than 1 cm. UPPER ABDOMEN: Chronic elevation right hemidiaphragm. Left renal cyst measuring 2.7 cm. IMPRESSION: 1. No evidence for Pulmonary embolism at this time.
[2024-04-07 17:14] VITALS: BP 126/85; PULSE 86; RESP 18
== END 2024-04-07 16:36 | disposition home or self-care (01) ==
LOC: EC 11:26
DX: M25.512 Pain in left shoulder (principal); R07.89 Other chest pain
CPT/HCPCS: 36415; 93005; 83880; 80053; 83690; 83735; 84484; 85025; 85610; 85730; 71046; 71275; 99285; Q9967